=== PATIENT | male | born 1955 | race Caucasian/White ===

== ENCOUNTER 2017-06-26 21:31 | Observation (INO) | payer BC ==
[2017-06-26] MEDS ORDERED: guaiFENesin/CODIEN 100MG-10MG* 5 ML UDC PO ONE (23:02)
[2017-06-26 23:09] LABS: ABS Basophils 0.1 10^3/ul (0-0.2); ABS Eosinophils 0.3 10^3/ul (0-0.6); ABS Lymphocytes 1.9 10^3/ul (1.0-4.8); ABS Neutrophils 5.3 10^3/ul (1.5-7.7); ABS Nucleated RBC 0 10^3/ul; Eosinophil % 3.7 % (0-6); Hematocrit 42 % (42-52); Hemoglobin 14.4 g/dl (14.0-18.0); Lymphocyte % 21.8 % (25-47); Mean Corpuscular HGB Conc 34 g/dl (31-36); Mean Corpuscular Hemoglobin 29 pg (27-31); Mean Corpuscular Volume 85 fL (80-94); Mean Platelet Volume 7 um3 (7.4-10.4); Nucleated Red Blood Cells % 0; Platelet Count 265 10^3/ul (150-450); Red Cell Distribution Width 14 % (10.5-15); White Blood Count 8.7 10^3/ul (3.5-10.8)
[2017-06-27] MEDS ORDERED: Iohexol 350* (CONTRAST) 500 ML MDV IV ONE (00:02)
[2017-06-27 01:00] LABS: Urine Appearance Clear; Urine Blood Negative (Negative); Urine Color Yellow; Urine Ketones Negative (Negative); Urine Protein Negative (Negative); Urine Specific Gravity 1.018 (1.010-1.030); Urine Urobilinogen Negative (Negative)
--- NOTE | 2017-06-27 01:46 | ED ---
Tana Murry Abhishek, scribed for Brianna Stroud MD on 06/26/17 at 2305 . Syncope/Near Syncope - HPI Summary HPI Summary: This patient is a 61 year old M presenting to [facility] accompanied by female with a chief complaint of syncope since . Total of 3 episodes of syncopal episodes since . Pt reported medication to ED physician. First episode lasted for 3 minutes. At the occurrence of episode, pt's reports that pt was "coughing, laying back and sitting up prior to passing out" and then, after the episode, the patient "wakes up wobbling his head" and "jerks" awake. Second episode occurred in the middle of the night (2nd episode at 0100; unknown how long episode lasted). The third episode occurred today while the pt was sitting on the couch which lasted 1 minute. The patient rates the pain 0/10 in severity. Symptoms aggravated by coughing. Symptoms alleviated by nothing. Patient reports throat tightening, anxiety, and depression. Patient denies edema LE, Vigil, blurry vision, ear ache, double vision, rashes, bruises, abd pain , SI , HI, hematuria, hematochezia, fevers, chills, and chest pain - History Of Current Complaint Chief Complaint: EDSyncope Time Seen by Provider: 06/26/17 21:46 Hx Obtained From: Patient Onset/Duration: Sudden Onset, Lasting Days - since Timing: Intermittent Episode Lasting - 1 to 3 minutes ( 3 seperate episodes) Context: Witnessed Aggravating Factor(s): Other - coughing Alleviating Factor(s): Spontaneous Resolution Associated Signs And Symptoms: Other - throat tigthening - Allergies/Home Medications Allergies/Adverse Reactions: Allergies Allergy/AdvReac Type Severity Reaction Status Date / Time No Known Allergies Allergy Verified 04/24/15 16:44 PMH/Surg Hx/FS Hx/Imm Hx Cardiovascular History: Reports: Hx Hypertension - ON MEDS Denies: Hx Pacemaker/ICD, Other Cardiovascular Problems/Disorders Respiratory History: Denies: Other Respiratory Problems/Disorders GI History: Denies: Other GI Disorders History: Denies: Other Problems/Disorders Musculoskeletal History: Denies: Other Musculoskeletal History Sensory History: Reports: Hx Contacts or Glasses - GLASSES Denies: Hx Hearing Aid Opthamlomology History: Reports: Hx Contacts or Glasses - GLASSES Neurological History: Denies: Other Neuro Impairments/Disorders Psychiatric History: Reports: Hx Depression - ON MEDS Denies: Hx Panic Disorder - Surgical History Surgery Procedure, Year, and Place: Rt KNEE- ARTHROSCOPIC 2010, [facility] ; TONSILECTOMY 1957 ; Lt HAND-GANGLION CYST, 2003, [facility]. RIGHT HAND , 1974. left hand infection requiring scraping Hx Anesthesia Reactions: Yes - HEART RATE SLOWED Infectious Disease History: No Infectious Disease History: Denies: Traveled Outside the [place] in Last 30 Days - Family History Known Family History: Positive: Cardiac Disease Negative: Diabetes - Social History Alcohol Use: Daily Alcohol Amount: almost daily Substance Use Type: Reports: None Smoking Status (MU): Never Smoked Tobacco Review of Systems Negative: Fever, Chills Eyes: Other - Negative double vision Negative: Blurred Vision ENT: Other - Throat tightening Negative: Sore Throat, Ear Ache Negative: Chest Pain Respiratory: Negative Gastrointestinal: Other - Negative hematochezia Negative: Abdominal Pain Negative: hematuria Negative: Edema Negative: Rash, Bruising Negative: Headache Psychological: Other - Negative SI, and HI Positive: Anxious, Depressed All Other Systems Reviewed And Are Negative: No Physical Exam - Summary Physical Exam Summary: Appearance: Alert, conversive, nontoxic appearing Skin: Warm, dry, no mottling, no rashes, no contusions HEENT: Acute blisters noted to the midline hard palate Neck: No masses on the neck, supple Respiratory: Clear to auscultation, breath sounds present, no rales, no rhonchi , no wheezes Cardiovascular: RRR, pulses are symmetrical in both lower and upper extremities Abdomen: Soft, non-tender Bowel Sounds: Present Musculoskeletal: No CVA tenderness, no obvious deformity, moving all extremities in a grossly normal manner Neurological: A&Ox3, CN II-XII Intact, moving all extremities symmetrically Psychiatric: Normal affect and mood Triage Information Reviewed: Yes Vital Signs On Initial Exam: Initial Vitals Temp Pulse Resp BP Pulse Ox 98.6 F 82 18 144/100 96 06/26/17 21:39 06/26/17 21:39 06/26/17 21:39 06/26/17 21:39 06/26/17 21:39 Vital Signs Reviewed: Yes Diagnostics - Vital Signs Vital Signs Temp Pulse Resp BP Pulse Ox 06/26/17 21:39 98.6 F 82 18 144/100 96 - Laboratory Result Diagrams: 06/26/17 22:55 06/26/17 22:55 Lab Statement: Any lab studies that have been ordered have been reviewed, and results considered in the medical decision making process. - Radiology Chest X-ray Radiology Interpretation Completed By: ED Physician - CXR reveals, per ED physician, no obvious pneumonia. - CT Head CTA CT Interpretation Completed By: Radiologist - Head CTA reveals, as per radiologist, no evidence of acute intracranial pathology. Normal CT angiogram brain. Minimal plaque in the proximal right ICA and proximal left external carotid artery without any hemodynamically significant ICA stenosis. ED Physician has reviewed this radiology report and agrees. - EKG 2149 EKG Rhythm: Sinus Rhythm - [address] Segment: Non-Specific EKG Interpretation: Time 2149: normal QRS, QTc, left axis Re-Evaluation - Re-Evaluation 8 Re-Evaluation Time: 23:58 Comment: Pt is feeling better after vasovagal episode. Course/Dx Course Of Treatment: The pt presented to the [facility] with a chief complain of syncope. There were 3 different occurances of syncope. The first episode of syncope occured after coughing. Medication reviewed, CXR revealed no pneumonia, and EKG reviewed. Prior to reevaluation, Pt had another vasovagal episode while in the [facility] , witnessed by nurse and another female after slight coughing. Upon reevaluation at 2358, pt is feeling better. A CTA of the head will be taken. We discussed the case and patient care with Dr. Ashford, and he accepts patient care. and the pt will be admitted to the [facility] due non-classical vasovagal episodes. The dx will be vasovagal syncope and URI. - Diagnoses Provider Diagnoses: Vasovagal syncope, URI (upper respiratory infection) - Physician Notifications Discussed Care of Patient With: Isac Ashford - we discussed pt care and the case Time Discussed With Above Provider: 01:20 Instructed by Provider To: Admit As Observation Discharge - Discharge Plan Condition: Stable Disposition: ADMITTED TO [facility] Referrals: Matt Chairez MD [Primary Care Provider] - The documentation as recorded by the Tana chung Abhishek accurately reflects the service I personally performed and the decisions made by , Brianna Stroud MD.
--- NOTE | 2017-06-27 07:03 | RAD ---
INDICATION: Syncope. COMPARISON: Comparison is made with a prior chest x-ray study from February 14, 2003. TECHNIQUE: 2 portable films of the chest were obtained. FINDINGS: Cardiac and mediastinal contours appear to be within normal limits. The lungs are clear. No pleural effusion is seen. IMPRESSION: NO EVIDENCE FOR ACUTE DISEASE.
--- NOTE | 2017-06-27 07:38 | RAD ---
INDICATION: Syncope. COMPARISON: There are no prior studies available for comparison. TECHNIQUE: Initially a CT of the brain without contrast was performed. This was followed by a CT angiogram of the head and neck with intravenous injection of 80 ml of Omnipaque 350 nonionic contrast. Contiguous axial sections were obtained from the thoracic inlet through the skull vertex. Images were reconstructed in the coronal and sagittal planes and in a 3-D volume rendered format. The distal cervical internal carotid artery diameter is used as the denominator for stenosis measurement. FINDINGS: CT OF THE BRAIN: The ventricles, cisterns and sulci appear to be within normal limits. No significant focal abnormality or mass effect is seen. There is no evidence for hemorrhage. RIGHT CAROTID: The common and internal carotid arteries appear patent without evidence for hemodynamically significant stenosis. There is minimal calcific plaque within the carotid bulb without stenosis. LEFT CAROTID: The common and internal carotid arteries appear patent without evidence for hemodynamically significant stenosis. There is minimal calcific plaque in the proximal external carotid artery. VERTEBRALS: The vertebral arteries are patent and codominant without evidence for high-grade stenosis. CTA BRAIN: The internal carotid, anterior and middle cerebral arteries appear patent without evidence for high-grade stenosis or occlusion. The vertebral, basilar and posterior cerebral arteries appear patent without evidence for high-grade stenosis or occlusion. No gross focal perfusion abnormalities are seen. No aneurysm or vascular malformation is seen. NECK: No significant enlarged lymph nodes are seen within the neck. The thyroid, parotid and submandibular glands appear to be within normal limits. The lung apices appear clear. The paranasal sinuses and mastoid air cells appear clear IMPRESSION: 1. NO EVIDENCE FOR CAROTID STENOSIS. 2. NO EVIDENCE FOR LARGE VESSEL INTRACRANIAL THROMBUS. CPT II Codes: 3100F
--- NOTE | 2017-06-27 07:46 | RAD ---
INDICATION: Cough and syncope. COMPARISON: Comparison is made with a prior chest x-ray study from [facility] 2018. TECHNIQUE: A CT scan of the chest was performed without intravenous contrast. Contiguous axial sections were obtained from the lung apices through the lung bases. Images were reconstructed in the coronal and sagittal planes. FINDINGS: There is mild dependent bilateral lower lobe subsegmental atelectasis. The lungs are otherwise clear. No pleural effusion is seen. No significant enlarged mediastinal or hilar lymph nodes are seen. The heart is within normal limits in size. No pericardial effusion is present. The thoracic aorta is normal in caliber. Images of the upper abdomen demonstrate normal sized liver and spleen. The liver is decreased in attenuation consistent with fatty infiltration. Contrast is seen within the kidneys from a prior contrast enhanced exam. No significant focal osseous abnormality is seen. IMPRESSION: 1. NO EVIDENCE FOR ACUTE FINDING. 2. HEPATIC STEATOSIS.
[2017-06-27] MEDS ORDERED: Benzonatate CAP* 100 MG PO ONE (09:50)
[2017-06-27] MEDS ORDERED: guaiFENesin/CODIEN 100MG-10MG* 5 ML UDC PO ONE (09:50)
--- NOTE | 2017-06-27 09:50 | CONSULT ---
"Subjective Date of Service: 06/27/17 Review of Systems - Measurements Intake and Output: Intake and Output Last 24 Hours 06/25/17 06/26/17 06/27/17 06/28/17 06:59 06:59 06:59 06:59 Weight 245 lb Objective Vital Signs - 8 hr 06/27/17 06/27/17 06/27/17 01:52 02:00 02:02 Pulse Rate 75 Respiratory 16 Rate Blood Pressure 124/83 (mmHg) O2 Sat by Pulse 96 Oximetry 06/27/17 06/27/17 06/27/17 02:30 03:00 03:20 Pulse Rate Respiratory 19 17 20 Rate Blood Pressure 139/85 141/93 (mmHg) O2 Sat by Pulse Oximetry 06/27/17 06/27/17 06/27/17 03:30 03:55 04:00 Pulse Rate 68 Respiratory Rate Blood Pressure 143/89 145/89 (mmHg) O2 Sat by Pulse 95 Oximetry 06/27/17 06/27/17 06/27/17 04:30 04:37 05:00 Pulse Rate 75 66 Respiratory Rate Blood Pressure 148/89 132/82 (mmHg) O2 Sat by Pulse 94 91 Oximetry 06/27/17 06/27/17 06/27/17 06:00 07:00 08:00 Pulse Rate 67 61 59 Respiratory Rate Blood Pressure (mmHg) O2 Sat by Pulse 93 93 93 Oximetry Result Diagrams: 06/26/17 22:55 06/26/17 22:55 Assessment/Plan - Billing Plan By Medical Problem: 1. Cough syncope. Cough started about a week after changing from lisinopril to amlodipine-benzepril. His partner has a URI. Cough is productive of felix sputum. Pt does not feel otherwise ill. Pt advised to stop the amlodipine- benzepril. Rx guaifenesin with codeine prn and benzonatate 200 mg tid scheduled. Fup Dr. Chairez. Pt has never smoked. He will also use steam and possibly a decongestant to help open his sinuses. 2. HTN. Fup Dr. Chairez. 3. Psychiatric disorder. Continue methylphenidate. Search Terms: simon chu, 1955 Search Date: 06/27/2017 09:44:42 AM The Drug Utilization Report below displays all of the controlled substance prescriptions, if any, that your patient has filled in the last twelve months. The information displayed on this report is compiled from pharmacy submissions to the Department, and accurately reflects the information as submitted by the pharmacies. This report was requested by: Aj Levine | Reference #: [id number] Others' Prescriptions Patient Name: Simon Chu Date: 1955 Address: [address] [place] [address] Sex: Male Rx Written Rx Dispensed Drug Quantity Days Supply Prescriber Name 06/17/2017 06/17/2017 methylphenidate 20 mg tablet 360 90 Matt Chairez MD 01/01/2017 01/08/2017 methylphenidate 20 mg tablet 360 90 Krysten Johnson NP 07/13/2016 07/19/2016 methylphenidate 20 mg tablet 360 90 Krysten Johnson NP"
[2017-06-27] MEDS ORDERED: Ibuprofen TAB* 400 MG PO PRN (12:09)
[2017-06-27] MEDS ORDERED: guaiFENesin/CODIEN 100MG-10MG* 5 ML UDC PO PRN (12:11)
[2017-06-27] MEDS ORDERED: Pseudoephedrine TAB* 60 MG PO PRN (12:12)
--- NOTE | 2017-06-27 12:24 | ADMNOTE ---
"Subjective Date of Service: 06/27/17 Interval History: ADMISSION HISTORY AND PHYSICAL EXAM: Allergies Allergy/AdvReac Type Severity Reaction Status Date / Time No Known Allergies Allergy Verified 04/24/15 16:44 Home Medications Medication Instructions Recorded Confirmed Type Citalopram TAB* [Celexa TAB*] 40 mg PO DAILY 06/30/13 06/27/17 History Ibuprofen TAB* [Motrin TAB*] 400 mg PO Q6H PRN 06/30/13 06/27/17 History Methylphenidate HCl [Ritalin] 40 mg PO BID 04/24/15 06/27/17 History Benzonatate [Benzonatate 200 MG] 200 mg PO TID #20 cap 06/27/17 Rx Guaifenesin-Codeine 5 - 10 ml PO Q4H PRN #240 ml MDD 06/27/17 Rx [Guaifenesin/Codeine] 60 ml HPI: Several days of cough sometimes followed by syncope, syncope occurring several times a day, 3-4 times in his 14 hr stay in the ED. Sometimes syncope occurs after a severe coughing fit, sometimes after only 1 or 2 coughs. His partner observed several of these, states he is unconcious for 3-4 seconds and recovers conciousness with jerking of all limbs for a second. Family History: Findings - unremarkable Social History: Findings - Lives with Polly Calix, who is his SDM. Never smoked, no alcohol abuse. [employer] professor. Past Medical History: Findings - tonsillectomy age 2. Review of Systems - Measurements Intake and Output: Intake and Output Last 24 Hours 06/25/17 06/26/17 06/27/17 06/28/17 06:59 06:59 06:59 06:59 Weight 245 lb - Review of Systems Constitutional Symptoms: Negative: Weight Gain, Weight Loss, Weakness, Fatigue, Fever, Night Sweats, Unexplained Falls, Other Dermatology: Positive: Normal HEENT: Positive: Normal Eyes: Positive: Normal Thyroid: Positive: Normal Pulmonary: Positive: Cough, Other - sleep apnea Cardiology: Positive: Normal Gastroenterology: Positive: Normal Genital - Urinary: Positive: Normal Musculoskeletal: Negative: Joint Pain, Joint Stiffness, Arthritis, Osteoporosis, Low Back Pain , Sciatica, Joint Deformities, Kyphoscoliosis, Other Endocrinology: Positive: Normal Hematologic/Lymphatic: Negative: Anemia, Easy Brusing, Hx Leukemia, Hx Lymphoma, Use of Anticoagulant, Use of Antiplatelet Drugs, Other Neurology: Positive: Other - syncope Psychiatry: Positive: Normal Objective Active Medications: Benzonatate (Tessalon Cap*) 200 mg PO TID ZOEY Citalopram Hydrobromide (Celexa Tab*) 40 mg PO DAILY ZOEY Enoxaparin Sodium (Lovenox(*)) 40 mg SUBCUT Q24H ZOEY Guaifenesin/Codeine Phosphate (Robitussin Ac 100mg-10mg*) 5 ml PO Q4H PRN PRN Reason: COUGH Ibuprofen (Motrin Tab*) 400 mg PO Q6H PRN PRN Reason: PAIN Non-Formulary Medication (Methylphenidate Hcl [Ritalin]) 40 mg PO BID ZOEY Pseudoephedrine HCl (Sudafed Tab*) 60 mg PO TID PRN PRN Reason: CONGESTION Vital Signs - 8 hr 06/27/17 06/27/17 06/27/17 04:30 04:37 05:00 Pulse Rate 75 66 Blood Pressure 148/89 132/82 (mmHg) O2 Sat by Pulse 94 91 Oximetry 06/27/17 06/27/17 06/27/17 06:00 07:00 08:00 Pulse Rate 67 61 59 Blood Pressure (mmHg) O2 Sat by Pulse 93 93 93 Oximetry 06/27/17 06/27/17 11:56 12:00 Pulse Rate 73 Blood Pressure 149/94 143/91 (mmHg) O2 Sat by Pulse 97 Oximetry Oxygen Devices in Use Now: None Appearance: Alert, sitting on ED stretcher. In good spirits. Looks comfortable. Eyes: No Scleral Icterus Ears/Nose/Mouth/Throat: Clear Oropharnyx, Mucous Membranes Moist Neck: NL Appearance and Movements; NL JVP, No Thyroid Enlargement, Masses Respiratory: Symmetrical Chest Expansion and Respiratory Effort, Clear to Auscultation, Clear to Percussion Cardiovascular: NL Sounds; No Murmurs; No JVD, RRR, No Edema, - Abdominal: NL Sounds; No Tenderness; No Distention, No Hepatosplenomegaly, - Extremities: No Edema, No Clubbing, Cyanosis, - Skin: No Rash or Ulcers, No Nodules or Sclerosis, - Neurological: Alert and Oriented x 3, NL Sensation Result Diagrams: 06/26/17 22:55 06/26/17 22:55 Assess/Plan/Problems-Billing Plan By Medical Problem: 1. Cough syncope. Cough started about a week after changing from lisinopril to amlodipine-benzepril. His partner has a URI. Cough is productive of felix sputum. Pt does not feel otherwise ill. Pt advised to stop the amlodipine- benzepril. Rx guaifenesin with codeine prn and benzonatate 200 mg tid scheduled. Fup Dr. Chairez. Pt has never smoked. He will also use steam and possibly a decongestant to help open his sinuses. 2. HTN. Fup Dr. Chairez. 3. Psychiatric disorder. Continue methylphenidate. Search Terms: simon chu, 1955 Search Date: 06/27/2017 09:44:42 AM The Drug Utilization Report below displays all of the controlled substance prescriptions, if any, that your patient has filled in the last twelve months. The information displayed on this report is compiled from pharmacy submissions to the Department, and accurately reflects the information as submitted by the pharmacies. This report was requested by: Aj Levine | Reference #: [id number] Others' Prescriptions Patient Name: Simon Chu Date: 1955 Address: [address] [place] [address] Sex: Male Rx Written Rx Dispensed Drug Quantity Days Supply Prescriber Name 06/17/2017 06/17/2017 methylphenidate 20 mg tablet 360 90 Matt Chairez MD 01/01/2017 01/08/2017 methylphenidate 20 mg tablet 360 90 Krysten Johnson NP 07/13/2016 07/19/2016 methylphenidate 20 mg tablet 360 90 Krysten Johnson [employer]GRICULTURAL ENGINEER - Patient Problems (1) Cough syncope Status: Acute Code(s): R05 - COUGH SNOMED Code(s): 97335390 Comment: Treat cough with scheduled benzonatate, PRN guaifenesin/codeine. Pseudoephedrine for sinus congestion. Dr. Mendez to consult. Stop ACEI ( benzepril). Tele, echo. (2) HTN (hypertension) Status: Acute Code(s): I10 - ESSENTIAL (PRIMARY) HYPERTENSION SNOMED Code(s) : 86981524 Comment: Amlodipine 5 mg daily start 1 PM 1/. (3) Sleep apnea Status: Acute Code(s): G47.30 - SLEEP APNEA, UNSPECIFIED SNOMED Code(s): 84149348 Comment: Partner will bring in his CPAP machine. (4) Attention deficit disorder Status: Acute Code(s): F98.8 - OTH BEHAV/EMOTN DISORD W ONSET USLY OCCUR IN CHLDHD AND ADOL SNOMED Code(s): 115104233 Comment: Continue methylphenidate."
[2017-06-27] MEDS ORDERED: Enoxaparin(*) 40 MG/0.4 ML SYR SUBCUT SCH (13:00)
[2017-06-27] MEDS: amLODIPine TAB* 5 MG PO SCH (14:30)
[2017-06-27] MEDS: Benzonatate CAP* 100 MG PO SCH ×2 (14:30→20:49)
[2017-06-27] MEDS: Citalopram TAB* 40 MG PO SCH (14:30)
[2017-06-27] MEDS: Methylphenidate TAB* 10 MG PO SCH (20:51)
--- NOTE | 2017-06-28 00:52 | CONS ---
NEUROLOGY CONSULTATION: DATE OF CONSULT: 06/27/17 LOCATION: He is an inpatient in [facility] REFERRING PHYSICIAN: Dr. Levine. CHIEF COMPLAINT: Episodes of loss of consciousness. 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 About three days ago, he started to have episode of loss of consciousness accompanied by coughing spells. He would get paroxysmal coughing and sometimes feel faint, but sometimes just suddenly lose consciousness after coughing. He is accompanied by his partner, Veronica, who has observed several episodes. He is usually seated or lie back when it starts. Once he felt to his knees. He has not had any injuries. Episodes of unconsciousness last 5-10 seconds but the coughing paroxysms can go on for a minute. He will sometimes stiffen and jerk during an episode of loss of consciousness. When it stops, he rapidly recovers and is completely oriented, knows where he is and what has been going on. Sometimes the episodes are very brief and he does not even realize that he has been unresponsive. Prior to , there have been no episodes of syncope or loss of consciousness. He did have a febrile seizure with a high fever when he was few months old. That is the only seizure he has ever had. He has had a number of sports concussions, but nothing requiring a medical evaluation or hospitalization. He has no family history of epilepsy. He had his antihypertensive medications changed a couple of weeks ago. He was on lisinopril and then that was switched to amlodipine and benazepril. PAST MEDICAL HISTORY: Notable for attention deficit disorder, for which he takes methylphenidate. Also hypertension. He has sleep apnea for which he uses a CPAP machine at home. He has had arthroscopic knee surgery. MEDICATIONS: Medications at home consists of Celexa 40 mg p.o. q. day, methylphenidate 40 mg p.o. b.i.d., lately he has been taking Sudafed as needed for congestion and is also on amlodipine 5 mg per day, which he was switched back to. ALLERGIES: He does not have any drug allergies. REVIEW OF SYSTEMS: Negative for headaches, visual changes, episodes of confusion, recent infections other than the upper respiratory infection. There is no history of stroke or cancer. No problems with shortness of breath other than when he is coughing and no problems with chest pain. No cardiac history. PHYSICAL EXAMINATION: He is well nourished and overweight. Temperature is 98.9 by temporal scan, blood pressure running 130-140 systolic/80-90 diastolic, heart rate in the 70s and regular. Respiratory rate 18, oxygen saturation is 94 % on room air. Heart is in a regular rate and rhythm without murmurs. Carotid pulses are symmetric and there are no cervical bruits. Head is atraumatic. Oral mucosa is moist. Tonsils look a little red and swollen. There is no exudate. Lungs are clear. Neurologically, pupils, fundi, and eye movements are normal. Visual lopez are full to confrontation. Optic disks are sharp bilaterally. Eye movements are normal. Facial musculature and facial sensation to light touch are symmetric. Palate and tongue appear normal and the palate rises symmetrically. There is no dysarthria. Neck strength is normal and hearing is intact. Motor exam reveals normal muscle tone and strength proximally and distally in upper and lower extremities. There is no pronator drift. Sensory exam to light touch and vibration is intact in the limbs. Romberg sign is absent. Finger taps are normal in the hands. He has a moderate suspension tremor and action tremor in both hands, a little worse on the left than the right. No rest tremor. Gait is just tested at the bedside and appears normal. He is quite steady on his feet. There is no bradykinesia. Reflexes are brisk and symmetric, plantar responses are flexor bilaterally. He is alert and oriented and is an excellent detailed historian. Memory is intact and language is fluent. He has good attention, concentration, and fund of knowledge. DIAGNOSTIC STUDIES/LAB DATA: Laboratory data includes a CT angiogram of the head and neck, which reveals no significant vascular disease. Specifically, no carotid stenosis. CBC is normal, chemistry profile is normal as well as a nonfasting glucose of 106, TSH is normal at 2.99. IMPRESSION AND PLAN: Cough, syncope. He has a history of a febrile seizure and he does have some jerking movement with the episodes, but they sound to be convulsive syncope rather than seizures. Nevertheless, since he is here we will go ahead and check an EEG and an MRI of his brain, but at this point I think the emphasis should be on suppressing his cough and making sure he does not have any cardiac disease. [id number]/[facility] #: [id number] LIUDMILA
[2017-06-28] MEDS ORDERED: Perflutren Lipid Microsphere* 3 ML VIAL ONE (08:03)
[2017-06-28] MEDS: amLODIPine TAB* 5 MG PO SCH (08:23)
[2017-06-28] MEDS: Benzonatate CAP* 100 MG PO SCH (08:23)
[2017-06-28] MEDS: Citalopram TAB* 40 MG PO SCH (08:23)
[2017-06-28] MEDS: Methylphenidate TAB* 10 MG PO SCH (08:25)
--- NOTE | 2017-06-28 09:29 | ECHO ---
Patient: RINA ROBLERO [facility] Rec#: [id number] : 1955 Date: 06/28/2017 Age: 61y Height: 187.96 cm / 74.0 in Weight: 111.13 kg / 244.9 lbs Sex: M BSA: 2.37 Room#: 446 Admit Date#: 06/27/2017 Type: Inpatient Referring: Aj Levine MD Reading: Eben Motley MD Health Counselor: Velvet Quinn,ALFREDITOCS,RDMS CC: Matt Chairez MD Transthoracic Echocardiogram Indication: Syncope BP: 105/62 HR: 72 Rhythm: NSR Findings History: HTN, KIRAN Technical Comments: The study quality is fair. The study is technically limited due to poor apical windows. Left Ventricle: The left ventricular chamber size is normal. Mild concentric left ventricular hypertrophy is observed. Left ventricular systolic function is at the lower limits of normal. The estimated ejection fraction is 50-55%. There is an E to A reversal in the mitral valve flow pattern suggestive of diastolic dysfunction. Left Atrium: The left atrial chamber size is normal. Right Ventricle: The right ventricular chamber size and systolic function are within normal limits. Right Atrium: The right atrium is slightly dilated. Aortic Valve: The aortic valve is trileaflet. Systolic excursion of the aortic valve is normal. There is no evidence of aortic regurgitation. There is no evidence of aortic stenosis. Mitral Valve: The mitral valve leaflets appear normal. There is no evidence of mitral regurgitation. There is no evidence of mitral stenosis. Tricuspid Valve: The tricuspid valve leaflets are normal. There is mild tricuspid regurgitation. No pulmonary hypertension is noted. Pulmonic Valve: The pulmonic valve appears normal. There is a trace pulmonic regurgitation. Pericardium: There is no significant pericardial effusion. Aorta: There is mild dilatation of the ascending aorta.3.7cm There is mild dilatation of the aortic arch. There is mild dilatation of the aortic root. Pulmonary Artery: The main pulmonary artery is not well visualized. Venous: The inferior vena cava is dilated. There is less than 50% respiratory change in the inferior vena cava dimension. Contrast: Definity was used to optimize study. A total of 2 ml was used Summary: There was not any prior study for comparison. Conclusions Mild concentric left ventricular hypertrophy is observed. Left ventricular systolic function is at the lower limits of normal. The estimated ejection fraction is 50-55%. There is no evidence of aortic regurgitation. There is no evidence of aortic stenosis. There is no evidence of mitral regurgitation. There is mild tricuspid regurgitation. No pulmonary hypertension is noted. There is no significant pericardial effusion. Measurements Name Value Normal Range RVIDd (AP) 2D 3 cm (0.9 - 2.6) RVDdMajor (2D) 4.1 cm (2.2 - 4.4) RAd ISD 4CH 5.9 cm (3.4 - 4.9) RA (A4C)W 4.3 cm (2.9 - 4.6) IVSd (2D) 1.2 cm (0.6 - 1) LVPWd (2D) 1.2 cm (0.6 - 1) LVIDd (2D) 4.7 cm (3.6 - 5.4) LVIDs (2D) 3.2 cm - LV FS (2D) 32 % (25 - 45) Aortic Annulus 2.4 cm (1.4 - 2.6) Ao root diameter (2D) 4.1 cm (2.1 - 3.5) Ascending Ao 3.7 cm (2.1 - 3.4) Aortic arch 3.9 cm (1.8 - 3.4) LA dimension (AP) 2D 4.3 cm (2.3 - 3.8) LAd ISD 4CH 5.3 cm (2.9 - 5.3) LA ISD 4CH W 4.7 cm (2.5 - 4.5) Name Value Normal Range LA ESV SP 4CH (A/L) 71.62 ml - LA ESV SP 2CH (A/L) 84.52 ml - LA ESV BP (A/L) 80.18 ml - LA ESV BP (A/L) index 34 ml/m2 - LA ESV SP 4CH (MOD) 66.41 ml - LA ESV SP 2CH (MOD) 78.26 ml - Name Value Normal Range MV E-wave Vmax 0.4 m/sec - MV deceleration time 317 msec - MV A-wave Vmax 0.5 m/sec - MV E:A ratio 0.9 ratio - P. vein S-wave Vmax 0.5 m/sec - P. vein D-wave Vmax 0.3 m/sec - P. vein S:D Vmax ratio 1.4 ratio - P. vein A-wave duration 148 msec - LV lateral e' Vmax 0.09 m/sec - LV E:e' lateral ratio 5 ratio - Name Value Normal Range AV Vmax 1.1 m/sec - AV VTI 23.1 cm - AV peak gradient 5 mmHg - AV mean gradient 2.4 mmHg - LVOT Vmax 0.9 m/sec - LVOT VTI 20.3 cm - LVOT peak gradient 3.2 mmHg - LVOT mean gradient 1.7 mmHg - RENEE Vmax 0.6 m/sec - Name Value Normal Range TR Vmax 2.3 m/sec - TR peak gradient 21 mmHg - RAP 3 mmHg - RVSP 24 mmHg - IVC diameter 2.4 cm - Name Value Normal Range PV Vmax 0.5 m/sec - PV peak gradient 1 mmHg -
--- NOTE | 2017-06-28 11:27 | RAD ---
Indication: Seizures. Image Sequences: Sagittal and axial T1, axial T2, FLAIR, diffusion and susceptibility weighted images of the brain were obtained. Ventricular structures are midline. No midline shift is noted. The extra-axial spaces are unremarkable. There is no evidence of intracranial mass or hemorrhage. No restriction of diffusion is noted on the diffusion-weighted images. The FLAIR images demonstrate periventricular signal abnormalities especially in the left posterior temporal lobe at the atria of the left lateral ventricle. This likely represents minor microvascular change. No other high or low signal lesions are noted. The orbits appear grossly unremarkable. No evidence of hippocampal abnormality is noted. IMPRESSION: Chronic ischemic white matter change. No intracranial mass or hemorrhage is noted.
[2017-06-28 12:03] VITALS: BP 136/89
--- NOTE | 2017-06-29 09:31 | DS ---
CC: Dr. Chairez * DISCHARGE SUMMARY: DATE OF ADMISSION: 06/27/17 DATE OF DISCHARGE: 06/28/17 HISTORY: This 61-year-old man presented with cough, syncope. He was quite clear that he never had syncope and the symptom was preceded by a cough. He had severe coughing spells precipitating the syncope, but occasionally just one or two coughs might precipitate a small syncopal episode. The episodes were very brief, 3 to 4 seconds. He would awake with a jerk. There were no other sequelae. He had a small amount of grayish sputum occasionally produced with this cough, but generally not when I saw him. He had multiple episodes in the emergency room and in the hospital. However, he thought they were getting less frequent and less severe. His cough was slightly improved. He was treated with benzonatate scheduled then p.r.n., guaifenesin, and pseudoephedrine. All of these will be continued as an outpatient. He was instructed not to take any alex inhibitor, particularly the benazepril he was on. Instead we have substituted amlodipine 5 mg for this. The patient was evaluated by Dr. Mendez. He had an MRI and an EEG. The MRI showed chronic white matter changes. EEG report is pending at this time. Dr. Mendez was not suspicious at all that there were seizures. FINAL DIAGNOSES: 1. Cough, syncope. 2. Hypertension. 3. Sleep apnea. 4. Attention deficit disorder. DISCHARGE MEDICATIONS: 1. Benzonatate 200 mg t.i.d. 2. Amlodipine 5 mg daily. 3. Pseudoephedrine 60 mg t.i.d. p.r.n. 4. Guaifenesin codeine 5 mL every 4 hours p.r.n. 5. Ibuprofen 400 mg every 6 hours p.r.n. 6. Citalopram 40 mg daily. 7. Methylphenidate 40 mg b.i.d. [id number]/[facility] #: [id number] [facility]
--- NOTE | 2017-06-29 13:57 | EEG ---
ELECTROENCEPHALOGRAPHY: DATE OF STUDY: 06/28/17 REFERRING PHYSICIAN: Dr. Levine. LOCATION: He is an inpatient in room 446. CLINICAL PROBLEM: Episodes of loss of consciousness associated with coughing spasms. There is a his tory of febrile seizure as an infant. MEDICATIONS: Include: 1. Robitussin. 2. Citalopram. 3. Methylphenidate. REPORT: This 16-channel EEG is remarkable for background rhythms at the onset of tracing consisting of fairly well-formed alpha rhythm in the posterior derivations at about 10 to 10.5 cycles per second of fairly low amplitude, which is symmetric and suppressed by eye opening. Abundant bifrontal beta rhythms and central beta rhythms are also noted and are symmetric. Occasionally some rhythmic centra l and bitemporal theta activities are noted consistent with drowsiness. Rare vertex sharp activity i s seen and some rudimentary sleep spindles as well. The patient exhibits a jerky movement of his day[place] t during drowsiness once, but otherwise there are no abnormalities noted. Activation procedures were not attempted. There are no focal, lateralized, or epileptiform abnormalities. CLINICAL IMPRESSION: Normal awake and asleep EEG. [id number]/[facility] #: [id number]
== END 2017-06-28 12:34 | disposition home or self-care (01) ==
LOC: ED 21:31 → MEDTELE 06-27 12:06
PROVIDERS: ADMIT Internal Medicine; ATTEND Internal Medicine
DX: R55 Syncope and collapse (principal); R05 Cough; I10 Essential (primary) hypertension; G47.30 Sleep apnea, unspecified; F98.8 Other specified behavioral and emotional disorders with onset usually occurring in childhood and adolescence; Z79.899 Other long term (current) drug therapy; K76.0 Fatty (change of) liver, not elsewhere classified; I51.7 Cardiomegaly
CPT/HCPCS: 36415; 70496; 70498; 70551; 71045; 71250; 80053; 81003; 81015; 83735; 84443; 84484; 85025; 87086; 93005; 93306; 95819; 96372; 99283; A9270-GY; C8929; G0378; J1650; Q9967